=== PATIENT | male | born 1990 ===

== ENCOUNTER 2016-05-06 21:26 | Emergency (ER) | payer BC, OTHER ==
[2016-05-07] MEDS ORDERED: ACETAMINOPHEN 500 MG TABLET ONE (01:48)
[2016-05-07] MEDS ORDERED: IBUPROFEN 600 MG TABLET ONE (01:48)
== END 2016-05-07 02:19 | disposition home or self-care (01) ==
LOC: ED 21:26
DX: M54.9 Dorsalgia, unspecified (principal); M54.2 Cervicalgia; V43.52XA Car driver injured in collision with other type car in traffic accident, initial encounter; Y92.410 Unspecified street and highway as the place of occurrence of the external cause
CPT/HCPCS: 99283 ×2; A9270 ×2